=== PATIENT | female | born 1985 | race American Indian/Alaskan Native ===

== ENCOUNTER 2017-06-19 10:07 | Day surgery (SDC) | payer MEDICAID ==
[2017-06-19] MEDS ORDERED: ANCEF/STERILE WATER 2 GM/20 ML IV NR (12:16)
--- NOTE | 2017-06-19 12:42 | Anesthesia Consultation ---
Anesthesia Consult and Med Hx Date of service: 06/19/17 - Airway Anesthetic Teeth Evaluation: Good ROM Head & Neck: Adequate Mental/Hyoid Distance: Adequate Mallampati Class: Class II Intubation Access Assessment: Probably Good - Pulmonary Exam CTA: Yes - Cardiac Exam Cardiac Exam: RRR - Pre-Operative Health Status ASA Pre-Surgery Classification: ASA3 Proposed Anesthetic Plan: General - Cardiovascular System Hx Hypertension: Yes - Endocrine Hx Non-Insulin Dependent Diabetes: Yes (borderline DM. h/o gestational DM) - Other Systems Hx Obesity: Yes - Additional Comments Anesthesia Medical History Comments: Patient says she had some chest discomfort and palpitaions 2-3 weeks. she went to another ER. She was told there is nothing wrong with her heart. but she has low K. EKG and Potassium level ordered- preop
[2017-06-19 12:57] LABS: HCG Qualitative,Urine Negative (Negative)
[2017-06-19] MEDS ORDERED: VERSED IV PRN (13:05)
--- NOTE | 2017-06-19 13:05 | Anesthesia Day of Surgery ---
Anesthesia Day of Surgery - Day of Surgery Patient Examined: Yes Patient H&P Reviewed: Yes Patient is NPO: Yes
[2017-06-19] MEDS ORDERED: DILAUDID IV PRN (13:06)
[2017-06-19] MEDS ORDERED: NACL 0.9% 1000 ML 1,000 ML IV SCH (14:00)
[2017-06-19] MEDS ORDERED: PEPCID IV NR (14:00)
[2017-06-19] MEDS ORDERED: DIPRIVAN 10 MG/ML IV ONE (14:04)
[2017-06-19] MEDS ORDERED: SUBLIMAZE ONE (14:04)
[2017-06-19] MEDS ORDERED: XYLOCAINE MPF 2% ONE ×2 (14:04)
[2017-06-19] MEDS ORDERED: ZOFRAN ONE (15:22)
[2017-06-19 16:40] VITALS: BP 113/72
--- NOTE | 2017-06-19 18:09 | Discharge Summary ---
Short Stay Discharge Plan Activity: no restrictions Weight Bearing Status: Full Weight Bearing Diet: regular Wound: remove dressing (On Monday before her clinic visit) Additional Instructions: MAY BE DISCHARGED HOME. FOLLOW UP APPOINTMENT IN DR. LAINEZ OFFICE ON Monday06/26/17. LEAVE DRESSINGS IN PLACE UNTIL FOLLOW UP APPOINTMENT. SPONGE BATH ONLY UNTIL FOLLOW UP APPOINTMENT. Follow up with: JUVENAL REYES JR, MD [Staff Physician] - 7 Days LEROY CA MD [Primary Care Provider] - 7 Days Forms: [facility] [place] [facility]
--- NOTE | 2017-06-19 18:11 | Short Stay Summary ---
Short Stay Documentation Date of service: 06/19/17 - Allergies and Medications Current Medications: Allergies No Known Allergies Allergy (Unverified 06/19/17 12:14) Home Medications Medication Instructions Recorded Confirmed Last Taken Type amLODIPine 06/19/17 Unknown History Active Medications Cefazolin Sodium (Ancef/Sterile Water 2 Gm/20 Ml) 2 gm IV PREOP NR Stop: 06/19/17 23:59 Famotidine (Pepcid) 20 mg IV PREOP NR Stop: 06/19/17 23:00 Last Admin: 06/19/17 13:25 Dose: 20 mg Hydromorphone HCl (Dilaudid) 0.5 mg IV Q10MIN PRN PRN Reason: Pain , Severe (7-10) Sodium Chloride (Nacl 0.9% 1000 Ml) 1,000 mls @ 100 mls/hr IV DIRECT YESSENIA Last Admin: 06/19/17 13:15 Dose: 100 mls/hr Midazolam HCl (Versed) 1 mg IV PREOP PRN PRN Reason: Agitation Last Admin: 06/19/17 14:35 Dose: 1 mg - Brief post op/procedure progress note Date of procedure: 06/19/17 Pre-op diagnosis: Bli. Absence of NAC's/Shmuel. Breast Deformity Post-op diagnosis: same Procedure: Shmuel. Nipple Reconstruction Anesthesia: GETA Surgeon: JUVENAL REYES JR Estimated blood loss: none Pathology: none Condition: stable - Disposition Condition at discharge: Good Disposition: DC-01 TO HOME OR SELFCARE Short Stay Discharge Plan Additional Instructions: MAY BE DISCHARGED HOME. FOLLOW UP APPOINTMENT IN DR. LAINEZ OFFICE ON Monday06/26/17. LEAVE DRESSINGS IN PLACE UNTIL FOLLOW UP APPOINTMENT. SPONGE BATH ONLY UNTIL FOLLOW UP APPOINTMENT. Follow up with: JUVENAL REYES JR, MD [Staff Physician] - 7 Days LEROY CA MD [Primary Care Provider] - 7 Days Forms: [facility] [place] [facility]
--- NOTE | 2017-06-19 19:10 | Operative Report ---
PREOPERATIVE DIAGNOSES: 1. Bilateral absence of nipples. 2. Bilateral acquired breast deformity. POSTOPERATIVE DIAGNOSES: 1. Bilateral absence of nipples. 2. Bilateral acquired breast deformity. PROCEDURE: Bilateral nipple reconstruction. SURGEON: Maximino Pace M.D. DIRECTOR LABOR STANDARDS: None. DESCRIPTION OF PROCEDURE: The patient was brought to the operating room and placed on the table in supine position. Following administration of general anesthesia, bilateral breasts were prepped with Betadine solution and draped in the usual sterile manner. A #11 blade scalpel was used to incise preoperative markings for a flag shaped flap, which was raised in a standard manner, folded around upon itself in order to perform a cylinder, secured in place with interrupted 3-0 Monocryl sutures. Donor site was closed with interrupted 2-0 Monocryl sutures. A dermal bridge was deepithelialized upon which the new nipple rested. Final skin closure performed with a running 3-0 Monocryl subcuticular stitch bilaterally. Protective sterile dressing was applied. The patient tolerated the procedure well. JOB# [id number] FTW/NTS
== END 2017-06-19 18:50 | disposition home or self-care (01) ==
LOC: OR 10:07
PROVIDERS: ATTEND Plastic Surgery
DX: N64.89 Other specified disorders of breast (principal); I10 Essential (primary) hypertension; E66.01 Morbid (severe) obesity due to excess calories; Z68.41 Body mass index [BMI] 40.0-44.9, adult; Z90.710 Acquired absence of both cervix and uterus; Z90.49 Acquired absence of other specified parts of digestive tract; Z79.899 Other long term (current) drug therapy
CPT/HCPCS: 19350; 36415; 81025; 82947; 84132; 93005; 93010; J0690; J2250; J2405; J2704; J3010; J7030